=== PATIENT | male | born 1950 | race Caucasian/White ===

== ENCOUNTER 2020-07-26 17:21 | Inpatient (IN) | payer MEDICARE, OTHER ==
[~2020-07-26] VITALS: Ht 170.2 cm; Wt 70.8 kg
--- NOTE | 2020-07-26 17:21 | NUR ---
Dr Elaine at the bedside for MSE.
[2020-07-26] MEDS ORDERED: BUSP10TA3 PO (17:45)
[2020-07-26] MEDS ORDERED: SENN8.8S19 PO (17:45)
[2020-07-26] MEDS ORDERED: LORA-258 PO (17:45)
[2020-07-26] MEDS ORDERED: BISA10SU61 RC (17:45)
[2020-07-26] MEDS ORDERED: QUET100T PO (17:45)
[2020-07-26] MEDS ORDERED: MAG30ORA PO (17:45)
[2020-07-26] MEDS ORDERED: MEMA10TA PO (17:45)
[2020-07-26] MEDS ORDERED: ACET-2154 PO (17:45)
[2020-07-26] MEDS ORDERED: POLY17PO4 PO (17:45)
[2020-07-26 17:56] LABS: BASOPHILS # (AUTO) 0.1 K/uL (0.0-8.0); BASOPHILS % (AUTO) 0.6 % (0.0-2.0); EOSINOPHILS # (AUTO) 0.1 K/uL (0.0-0.7); EOSINOPHILS % (AUTO) 1.2 % (0.0-7.0); HEMATOCRIT 39.4 % (36.7-47.1); HEMOGLOBIN 13.3 g/dL (12.5-16.3); LYMPHOCYTES # (AUTO) 2.4 K/uL (20.0-40.0); LYMPHOCYTES % (AUTO) 29.9 % (20.5-51.5); MEAN CORPUSCULAR HEMOGLOBIN 30.9 uug (23.8-33.4); MEAN CORPUSCULAR HGB CONC 34 g/dL (32.5-36.3); MEAN CORPUSCULAR VOLUME 91.7 fL (73.0-96.2); MONOCYTES # (AUTO) 0.5 K/uL (2.0-10.0); MONOCYTES % (AUTO) 6.4 % (0.0-11.0); NEUTROPHILS % (AUTO) 61.9 % (38.5-71.5); PLATELET COUNT (AUTO) 259 K/uL (152-348); RED BLOOD CELL COUNT(AUTO) 4.29 MIL/uL (4.06-5.63); WHITE BLOOD COUNT (AUTO) 8.1 K/uL (3.6-10.2)
--- NOTE | 2020-07-26 18:04 | NUR ---
Pt assissted to stand up to urinate, unable to use urinal and urinated on the floor. Unable to collect urine for LAB.
[2020-07-26 18:06] LABS: ETHANOL < 3 MG/DL (0-0)
[2020-07-26 18:18] LABS: CARBON DIOXIDE 25 mmol/L (21-32); CHLORIDE 103 mmol/L (98-107); CREATININE 1.1 mg/dL (0.6-1.3); GLUCOSE 92 mg/dL (74-106); POTASSIUM 4.1 mmol/L (3.5-5.1); UREA NITROGEN, BLOOD 34 mg/dL (7-18)
--- NOTE | 2020-07-26 18:20 | NUR ---
Pt medically cleared by Dr Elaine. Called PET brandt Klein RN, ETA 1930.
[2020-07-26 18:24] LABS: ALANINE AMINOTRANSFERASE 22 U/L (16-63); ALKALINE PHOSPHATASE 125 U/L (50-136); ASPARTATE AMINOTRANSFERASE 30 U/L (15-37); BILIRUBIN,DIRECT 0.1 mg/dL (0.0-0.2); BILIRUBIN,TOTAL 0.5 mg/dL (0.2-1.0); TOTAL PROTEIN, SERUM 7.1 g/dL (6.4-8.2)
[2020-07-26 18:25] LABS: ACETAMINOPHEN < 2.0 ug/mL (10-30)
--- NOTE | 2020-07-26 18:27 | NUR ---
Pt attempts to climb out of bed and swings at staff, DR Elaine made aware. Medications ordered.
[2020-07-26] MEDS ORDERED: LORAZEPAM 2 MG/1 ML VIAL IM ONE (18:30)
[2020-07-26] MEDS ORDERED: HALOPERIDOL LACTATE 5 MG/1 ML VIAL ONE (18:30)
[2020-07-26] MEDS ORDERED: LORAZEPAM 2 MG/1 ML VIAL ONE (18:30)
[2020-07-26] MEDS ORDERED: HALOPERIDOL LACTATE 5 MG/1 ML VIAL IM ONE (18:30)
--- NOTE | 2020-07-26 20:08 | NUR ---
Crisis [employer] team member here to evaluate patient
--- NOTE | 2020-07-26 20:53 | NUR ---
Patient discharged to home in stable condition. Written and verbal after care instructions given. Patient verbalizes understanding of instructions. Stressed follow up or return to ER for worsening s/s. Belongings with patient. 5150 hold for DTS and GD placed by Valencia from Crisis Team. Stable condition. Addendum: 07/27/20 at 2312 by MUNA This note was inaccurate per Cesar Sams RN, written on incorrect patient. Please disregard
[2020-07-26] MEDS ORDERED: MAGNESIUM HYDROXIDE 30 ML LIQUID UDC PO PRN (21:15)
[2020-07-26] MEDS ORDERED: MAG HYDROX/AL HYDROX/SIMETH 30 ML LIQUID UDC PO PRN (21:15)
[2020-07-26] MEDS: LORAZEPAM 1 MG TABLET PO PRN (22:40)
--- NOTE | 2020-07-26 22:45 | NUR ---
GPS: Admitted to facility earlier a 70 yr.old male under the care and supervision of ( Dr. Menchaca-robyn) and PRESS TENDER STAR SIGNAL Emanuel who was medically cleared in the E.R. Pt.is on 72 hour hold for DTO/GD. Pt.has been aggressive ,increased agitation and increased confusion at the assisted living facility where he's from,per hold. Pt.is alert to himself only. Confused,disoriented and disorganized. Combative,resistant to nursing care,unpredictable and aggressive during care. Unable to answer questions when interviewed and unable to sign due to mental condition. Reality re-orientation provided. Personal belongings checked for any contraband. Pt.advisement/pt's rights handbook given. Unit rules explained. Fall precautions initiated. VSS. Ativan 1mg given PO for increased anxiety/agitation. Will continue to monitor. Frequent re-direction provided. Family aware of pt's admission to the unit.
--- NOTE | 2020-07-27 06:40 | NUR ---
GPS: Pt.still asleep at this time. Fall precautions observed. In no form of distress noted.
[2020-07-27 07:30] VITALS: BP 154/96
--- NOTE | 2020-07-27 09:29 | NUR ---
Firearms Report: Casing Material Weigher completed and submitted a DOJ firearms report for 5150 grave disability and danger to others certifications. A copy of report has been placed in patient chart.
--- NOTE | 2020-07-27 09:46 | NUR ---
DALJIT Family Contact: DALJIT spoke with patient's , Meet ([phone]) who is also the DPOA. DALJIT requested DPOA documents from [facility] ([phone]), spoke with Omar who will be faxing it to this auto service writer. Meet provided collateral information (see DALJIT assessment). DALJIT discussed treatment and discharge plan with Garimaigordarron.
--- NOTE | 2020-07-27 10:10 | NUR ---
DALJIT Initial Discharge Plan: Patient was recently at a assisted living facility [facility] where he was discharge home [address] [place], [place] [address] with /DPOA, Meet ([phone]) as he was unmanageable at the facility. DALJIT spoke with Meet who requested a SNF placement for the patient from the hospital once stable. DALJIT will continue to work with patient, family, and MD to ensure a safe and proper discharge plan.
[2020-07-27] MEDS: LORAZEPAM 1 MG TABLET PO PRN ×2 (12:36→23:21)
--- NOTE | 2020-07-27 13:00 | NUR ---
Gps/Slack Cooper- Patient gets fidgety, restless, given his finger foods, fluids offered and encouraged, Safety reviewed emphasized, ambulated by rx specialist w/ no walker. Confused, disoriented. Uncooperative during his care.
[2020-07-27 16:00] VITALS: BP 113/71
[2020-07-27] MEDS: QUETIAPINE FUMARATE 25 MG TABLET PO SCH (17:28)
[2020-07-27] MEDS: busPIRone 5 MG TABLET PO SCH (17:28)
--- NOTE | 2020-07-27 17:45 | NUR ---
Gps/Head Start Teacher-Toileted, no voiding noted, needed to collect urine specimen Tried to offered fluids/juices, tends to bite plastic spoon during meals when tries to feed. Confused , disoriented , kept up in his carlin-chair close to the Nurses station for safety. Not initiating to feed self during dinner , needs verbal cues, prompted to feed self., needed supervision.
[2020-07-27] MEDS: MEMANTINE HCL 5 MG TABLET PO SCH (20:23)
[2020-07-27 20:32] VITALS: BP 109/72
[2020-07-27] MEDS ORDERED: MAG HYDROX/AL HYDROX/SIMETH 30 ML LIQUID UDC PO SCH (21:15)
[2020-07-27] MEDS ORDERED: ACETAMINOPHEN 325 MG TABLET PO PRN (21:15)
[2020-07-27] MEDS ORDERED: MIRALAX 17 GM POWD.PACK PO PRN (21:15)
[2020-07-27] MEDS ORDERED: SENNOSIDES 1 TABLET PO PRN (21:15)
[2020-07-27] MEDS ORDERED: BISACODYL 10 MG SUPP.RECT RC PRN (21:15)
[2020-07-28] MEDS: QUETIAPINE FUMARATE 25 MG TABLET PO PRN (00:51)
[2020-07-28 07:30] VITALS: BP 112/73
--- NOTE | 2020-07-28 07:38 | NUR ---
patient slept for approx 4 hrs through the night. He was noted combative while ADLs. required 2 person assistance for give care. will continue to monitor.
[2020-07-28] MEDS: MEMANTINE HCL 5 MG TABLET PO SCH ×2 (08:38→20:05)
[2020-07-28] MEDS: QUETIAPINE FUMARATE 25 MG TABLET PO SCH ×3 (08:38→17:04)
[2020-07-28] MEDS: busPIRone 5 MG TABLET PO SCH ×3 (08:38→17:04)
[2020-07-28] MEDS ORDERED: BISACODYL 10 MG SUPP.RECT RC PRN (09:02)
--- NOTE | 2020-07-28 09:55 | NUR ---
DALJIT DPOA Documents: DALJIT received DPOA documents from patient's , Meet ([phone]). Addendum: 07/28/20 at 0957 by FAHEEM HERNANDEZ A copy has been placed in the patient's chart.
[2020-07-28 17:21] VITALS: BP 149/70
[2020-07-28] MEDS: LORAZEPAM 1 MG TABLET PO PRN (17:59)
[2020-07-28 20:05] VITALS: BP 108/73
--- NOTE | 2020-07-29 04:10 | NUR ---
GPS: Pt.asleep upon rounds. Bed alarm on for safety. Safety checks Q15 minutes done as scheduled. Will continue to monitor.
[2020-07-29 04:50] VITALS: BP 119/77
--- NOTE | 2020-07-29 04:50 | NUR ---
GPS: Pt. got up from his bed and started ambulating along the hallway when he suddenly lost his balance and landed on the floor hitting top of his head. Assisted to the carlin-chair. Pt.suffered skin tear on top of his head. No other injuries noted. Moves all ext's without any noted pain/discomfort. VSS. Ice packs applied . Neuro checks initiated. Pt.is confused,disoriented and unable to state reason why he got out of bed. was informed with orders,carried-out. Pt.kept near nurses station for close observation. No N/V noted. Will continue to monitor.
--- NOTE | 2020-07-29 05:22 | NUR ---
GPS: Pt.up on carlin-chair near nurses station for close observation and for safety due to recent fall. No changes in his baseline LOC noted. No n/v noted. Neuro checks continues.
--- NOTE | 2020-07-29 06:27 | NUR ---
GPS: Pt.awake alert to self. Up on carlin-chair as nathalie. near nurses station for close observation. No changes in his baseline LOC noted. Neuro checks continues and WNL. Denies headache/pain/ nor any N/V. Fall precautions observed. Reality re-orientation provided.
[2020-07-29] MEDS: busPIRone 5 MG TABLET PO SCH ×3 (08:16→17:08)
[2020-07-29] MEDS: MEMANTINE HCL 5 MG TABLET PO SCH ×2 (08:16→21:12)
[2020-07-29] MEDS: QUETIAPINE FUMARATE 25 MG TABLET PO SCH ×3 (08:16→17:08)
--- NOTE | 2020-07-29 14:00 | NUR ---
Gps/Sheetfed Press Operator-Needed assist with his meals, resisitive to care from time to time. Staff needed to use silverware sppoo when assisting his with meals, patient tends to bite plastic spoone. Continue to monitor patient closely for safety
[2020-07-29 15:25] VITALS: BP 109/70
--- NOTE | 2020-07-29 16:51 | NUR ---
Gps/Filling Room Operator- Toileted , incontinent of soft stools and urine, needed 3 staff to assist patient with his hygiene, patient was combative, resistive to his care. Diaper applied Noted small skin tear right elbow and left f/a, site cleansed with NS, pat dry, mepilex applied, secured with tegaderm to protect skin from rubbing arms on the tray
--- NOTE | 2020-07-29 17:41 | NUR ---
Gps/Coal Chute Worker- Fed self with finger food, needed close supervision , verbal cues
--- NOTE | 2020-07-29 18:32 | NUR ---
Gps/Concrete Stone Finishing Supervisor- Patient's Meaghan was called and informed patient had a fall at 0500 , per noc. shift note s pt. got OOB and started ambulating around ,and lost his balance, informed Post Partum Nurse was notified and CT head was done.
[2020-07-29 20:00] VITALS: BP 113/75
[2020-07-29] MEDS: LORAZEPAM 1 MG TABLET PO PRN (21:34)
[2020-07-29] MEDS: TEMAZEPAM 7.5 MG CAPSULE PO PRN (23:35)
--- NOTE | 2020-07-30 06:26 | NUR ---
PAtient slept 30 minutes only.Compliant with medication. Patient was placed on his bed last night.Provided a quite and calm environment .Safety measures was in place. Patient trying to get out of bed .Noted unsteady gait. Assisted patient to bathroom with 3 person assist.BM x1. Noted combative behavior while providing care.PAtient placed back on carlin -chair. Will endorse to oncoming shift.
[2020-07-30 07:30] VITALS: BP 110/65
[2020-07-30 08:00] VITALS: BP 110/65
[2020-07-30] MEDS: MEMANTINE HCL 5 MG TABLET PO SCH ×2 (08:37→20:05)
[2020-07-30] MEDS: QUETIAPINE FUMARATE 25 MG TABLET PO SCH ×3 (08:37→17:55)
[2020-07-30] MEDS: busPIRone 5 MG TABLET PO SCH ×3 (08:37→17:55)
--- NOTE | 2020-07-30 08:59 | NUR ---
Gps/Shore Working Supervisor- Patient needing assist with his meal, routine am meds. crushed , administered with apple sauce, offered finger foods. Confused, disoriented, gets combative when tried to feed this am. Monitored closely for safety. fidgety
[2020-07-30] MEDS: CLOTRIMAZOLE 1% CREAM 30 GM TUBE TOP SCH (10:53)
--- NOTE | 2020-07-30 11:50 | NUR ---
Gps/Electrical Cad Designer- Poorly goomed toenails, thick , crusty, fungal cream applied as ordered. Forearms with patches of small bruising and redness, small skin tears , unable to keep dressings, pt. kept removing . Restless and fidgety in his carlin-chair, monitored closely for his safety .
[2020-07-30 16:00] VITALS: BP 110/68
--- NOTE | 2020-07-30 16:55 | NUR ---
Gps/Pad Making Machine Operator- Restless, fidgety while sitting in his carlin-chair, noted incontinent of urine as well and soft stools, toileted, had more bm in the bathroom, when tried to assist patient in cleaning , trying to provide good hygiene, patient starting to get agitated, aggressive, trying to hit staff, kicking staff, needed 4 staff to assist patient to bed to provide good skin care, and for safety, but patient remains aggressive towards the staff, Security Guards (2) came to assist Diaper applied , good skin care rendered. When patient was cleansed, pajama bottom put on, , remains to kicked Safety continue to emphasized. staff in the face. Patient was put in his carlin-chair , tried to assist with his dinner.
--- NOTE | 2020-07-30 17:00 | NUR ---
Gps/Central Supply Tech- Also noted patient was trying to bite the Military Equipment Specialist during his care.
--- NOTE | 2020-07-30 18:01 | NUR ---
Gps/Station Repairer- Patient was fed during his dinner, adequate fluid intake , assisted by ADULT EDUCATION PROFESSIONAL. Kept up in his carlin-chair for safety ,
[2020-07-30 20:00] VITALS: BP 115/70
--- NOTE | 2020-07-31 06:36 | NUR ---
GPS: Pt.slept for 8.15 last night. Remains combative/resistant during incontinence care. Fall precautions observed. Bed alarm on for safety.
[2020-07-31 07:30] VITALS: BP 100/56
[2020-07-31 07:58] LABS: CREATININE 0.9 mg/dL (0.6-1.3)
[2020-07-31] MEDS: MEMANTINE HCL 5 MG TABLET PO SCH (08:53)
[2020-07-31] MEDS: QUETIAPINE FUMARATE 25 MG TABLET PO SCH ×3 (08:53→17:38)
[2020-07-31] MEDS: busPIRone 5 MG TABLET PO SCH ×3 (08:53→17:38)
[2020-07-31] MEDS: CLOTRIMAZOLE 1% CREAM 30 GM TUBE TOP SCH (08:54)
--- NOTE | 2020-07-31 14:22 | NUR ---
GPS: Nursing Notes: Destructive Behavior to Others: Patient is awake and responding to his name, poor insight, impaired judgment, resistant with nursing care by striking out while changing his wet diaper, loud and angry affect, poor anger management, confused, disoriented, disruptive by banging on the table with his fist, redirected and reoriented during shift, unable to formulate a viable plan for self care, continue with treatment plan.
[2020-07-31 15:11] VITALS: BP 109/66
[2020-07-31] MEDS: LORAZEPAM 1 MG TABLET PO PRN ×2 (16:03→20:21)
[2020-07-31] MEDS: ENSURE ENLIVE (VAN) 240 ML LIQUID PO SCH (17:38)
[2020-07-31] MEDS: MEMANTINE HCL 10 MG TABLET PO SCH (20:21)
[2020-07-31 20:29] VITALS: BP 106/69
[2020-07-31] MEDS: TEMAZEPAM 7.5 MG CAPSULE PO PRN (22:09)
[2020-08-01] MEDS: LORAZEPAM 1 MG TABLET PO PRN ×2 (01:12→16:29)
[2020-08-01] MEDS: QUETIAPINE FUMARATE 25 MG TABLET PO PRN ×2 (04:56→12:11)
[2020-08-01 07:30] VITALS: BP 112/62
--- NOTE | 2020-08-01 10:13 | NUR ---
DALJIT SNF Referral: Faxed patient's referral packet attention to [facility] for review and possible placement at [facility] (fax: [phone]). Addendum: 08/01/20 at 1058 by FAHEEM HERNANDEZ Patient is accepted for placement.
[2020-08-01] MEDS: QUETIAPINE FUMARATE 25 MG TABLET PO SCH ×2 (10:25→17:26)
[2020-08-01] MEDS: MEMANTINE HCL 10 MG TABLET PO SCH ×2 (10:25→20:19)
[2020-08-01] MEDS: busPIRone 5 MG TABLET PO SCH ×3 (10:25→17:26)
[2020-08-01] MEDS: ENSURE ENLIVE (VAN) 240 ML LIQUID PO SCH ×2 (10:26→17:27)
[2020-08-01] MEDS: Z GUARD REMEDY PASTE 57 GM TUBE TOP SCH ×2 (10:26→20:20)
[2020-08-01] MEDS: CLOTRIMAZOLE 1% CREAM 30 GM TUBE TOP SCH (10:26)
[2020-08-01] MEDS ORDERED: QUETIAPINE FUMARATE 25 MG TABLET PO SCH ×2 (11:00→21:00)
[2020-08-01 16:00] VITALS: BP 100/62
[2020-08-01 20:25] VITALS: BP 115/75
[2020-08-01] MEDS: TEMAZEPAM 7.5 MG CAPSULE PO PRN (22:24)
[2020-08-02] MEDS: LORAZEPAM 1 MG TABLET PO PRN ×2 (00:54→22:59)
--- NOTE | 2020-08-02 06:48 | NUR ---
PATIENT SLEPT FOR APPROX 1.30 HRS THROUGH THE NIGHT. HE IS NOW IN BED SLEEPING. WILL CONTINUE TO MONITOR,
[2020-08-02 07:30] VITALS: BP 120/74
--- NOTE | 2020-08-02 07:30 | NUR ---
Received patient in Diana chair in the hallway. Patient is is noted A/O times 1. Mood is aggitated. Vital signs are stable. Safety and fall precaution in place. will continue to monitor.
[2020-08-02] MEDS: QUETIAPINE FUMARATE 25 MG TABLET PO SCH ×3 (09:28→20:04)
[2020-08-02] MEDS: busPIRone 5 MG TABLET PO SCH ×3 (09:28→17:27)
[2020-08-02] MEDS: ENSURE ENLIVE (VAN) 240 ML LIQUID PO SCH ×2 (09:28→17:35)
[2020-08-02] MEDS: MEMANTINE HCL 10 MG TABLET PO SCH ×2 (09:28→20:04)
[2020-08-02] MEDS: CLOTRIMAZOLE 1% CREAM 30 GM TUBE TOP SCH (09:29)
[2020-08-02] MEDS: Z GUARD REMEDY PASTE 57 GM TUBE TOP SCH ×2 (09:29→21:03)
[2020-08-02] MEDS ORDERED: OLANZAPINE 10 MG VIAL IM ONE (09:45)
--- NOTE | 2020-08-02 10:00 | NUR ---
Patient tries to hit staff. witnessed behavior and placed order for Zyprexa 5 MG IM now. Will administer and continue to monitor
--- NOTE | 2020-08-02 15:35 | NUR ---
This consumer loan underwriter took over care of this patient. Received report from ALEJANDRINA Jj. All questions, comments, and concerns were addressed.
[2020-08-02 16:00] VITALS: BP 118/70
[2020-08-02] MEDS: ACETAMINOPHEN 325 MG TABLET PO PRN (20:04)
[2020-08-02 20:26] VITALS: BP_SYST 110; BP_SYST 114; BP_DIAS 67; BP_DIAS 71
[2020-08-03] MEDS: TEMAZEPAM 7.5 MG CAPSULE PO PRN (00:30)
--- NOTE | 2020-08-03 06:42 | NUR ---
PT SLEPT 3.5 H. PT IN NO ACUTE DISTRESS. PRESCRIBED MEDICATION GIVEN AND PT TOLERATED IT WELL.PT CONFUSED AND NEEDS REORIENTATION. PT VITAL SIGNS STABLE. SAFETY AND COMFORT PROVIDED. WILL ENDORSE TO INCOMING NURSE FOR CONTINUITY OF CARE.
[2020-08-03 07:30] VITALS: BP 98/63
[2020-08-03] MEDS: QUETIAPINE FUMARATE 25 MG TABLET PO SCH ×3 (08:28→21:22)
[2020-08-03] MEDS: busPIRone 5 MG TABLET PO SCH ×3 (08:29→16:07)
[2020-08-03] MEDS: CLOTRIMAZOLE 1% CREAM 30 GM TUBE TOP SCH (08:30)
[2020-08-03] MEDS: ENSURE ENLIVE (VAN) 240 ML LIQUID PO SCH ×4 (08:30→17:42)
[2020-08-03] MEDS: MEMANTINE HCL 10 MG TABLET PO SCH ×2 (08:30→21:22)
[2020-08-03] MEDS: Z GUARD REMEDY PASTE 57 GM TUBE TOP SCH ×2 (08:31→21:23)
[2020-08-03] MEDS: LORAZEPAM 1 MG TABLET PO PRN (09:58)
--- NOTE | 2020-08-03 10:19 | NUR ---
Court Hearing: Patient's court hearing was today and it was upheld for GD.
[2020-08-03 16:36] VITALS: BP 117/64
--- NOTE | 2020-08-03 19:45 | NUR ---
Patient complaint with medications. Safety and comfort measures observed. vital signs stable. needs redirection at times. Cooperative with care. will endorse to incoming shift.
[2020-08-03 20:27] VITALS: BP 113/69
--- NOTE | 2020-08-04 04:44 | NUR ---
RECEIVED PATIENT IN THE RECLINING CHAIR, COOPERATIVE WITH CARE AND MEDICATION, CALM. PATIENT SLEPT MOST OF THE NIGHT, KEPT COMFORTABLE.
[2020-08-04 07:30] VITALS: BP 110/71
--- NOTE | 2020-08-04 08:00 | NUR ---
Confused. Assisted to the bathroom then to gerichair. Participated with PT. Ambulated in the hallway. Compliant with taking crushed medication
[2020-08-04] MEDS: busPIRone 5 MG TABLET PO SCH ×3 (09:02→16:28)
[2020-08-04] MEDS: MEMANTINE HCL 10 MG TABLET PO SCH ×2 (09:03→20:55)
[2020-08-04] MEDS: Z GUARD REMEDY PASTE 57 GM TUBE TOP SCH ×2 (09:03→21:49)
[2020-08-04] MEDS: CLOTRIMAZOLE 1% CREAM 30 GM TUBE TOP SCH (09:03)
[2020-08-04] MEDS: QUETIAPINE FUMARATE 25 MG TABLET PO SCH ×3 (09:03→20:56)
[2020-08-04] MEDS: ENSURE ENLIVE (VAN) 240 ML LIQUID PO SCH ×3 (09:04→16:28)
--- NOTE | 2020-08-04 13:00 | NUR ---
Calm on the gerichair. Assisted with meals.
[2020-08-04 16:00] VITALS: BP 103/63
[2020-08-04 20:38] VITALS: BP 111/74
[2020-08-04] MEDS: diphenhydrAMINE 50 MG CAPSULE PO PRN (20:56)
--- NOTE | 2020-08-05 06:37 | NUR ---
Patient was calm at the beginning of the shift. Still confused and disoriented. Unable to speak clearly. This comic writer encouraged oral fluids and patient was able to take medications with no difficulty. Patient put in bed and slept for 8.15 hours. Up this am d/t incontinence of urine. Patient was combative this am when staff was providing gracie care and a changing his cloths. Continuing to assist patient when ambulating and monitoring for safety.
[2020-08-05 07:30] VITALS: BP 112/73
[2020-08-05] MEDS: busPIRone 5 MG TABLET PO SCH ×3 (08:51→16:24)
[2020-08-05] MEDS: QUETIAPINE FUMARATE 25 MG TABLET PO SCH ×3 (08:51→19:47)
[2020-08-05] MEDS: MEMANTINE HCL 10 MG TABLET PO SCH ×2 (08:51→19:47)
[2020-08-05] MEDS: ENSURE ENLIVE (VAN) 240 ML LIQUID PO SCH ×3 (08:52→17:00)
[2020-08-05] MEDS: Z GUARD REMEDY PASTE 57 GM TUBE TOP SCH ×2 (08:53→19:48)
[2020-08-05] MEDS: CLOTRIMAZOLE 1% CREAM 30 GM TUBE TOP SCH (08:53)
[2020-08-05 16:00] VITALS: BP 106/68
--- NOTE | 2020-08-05 18:09 | NUR ---
Patient in [facility] , assisted him during feeding, all due meds given per MD order. Assisted him to the restroom . Patient has no s/sx of distress. All needs met in a timely manner. Assisted patient to walk in the hallway and assisted back to [facility].
[2020-08-05 19:51] VITALS: BP 126/71
--- NOTE | 2020-08-05 19:57 | NUR ---
Report called to Jennifer on the 3rd floor. Patient is being transferred as a MHU overflow patient with a sitter. Patient is awake but confused, belongings sent with patient. VS are stable at the time of transfer. Will contact family if indicated. No combativeness noted at this time.
--- NOTE | 2020-08-05 20:36 | NUR ---
Patients was notified of the transfer by the charge nurse.
[2020-08-05] MEDS: diphenhydrAMINE 50 MG CAPSULE PO PRN (23:03)
--- NOTE | 2020-08-05 23:15 | NUR ---
Patient in Diana chair awake and Confused.Re orientation rendered.Patient easily gets agitated.Assisted patient in bed with 4 persons assist.Patient gets combative ,unable to re direct. Pulled out medication and was drop on the floor ,wasted medication in the pyxis.Pulled out another one to administer. Sitter at bedside.
--- NOTE | 2020-08-06 06:40 | NUR ---
Patient slept 6 hours.Calm and cooperative this morning. No acute distress noted.1:1 sitter remain at bedside.
--- NOTE | 2020-08-06 07:30 | NUR ---
pt received in bed sleeping sitter at bed side
[2020-08-06] MEDS: MEMANTINE HCL 10 MG TABLET PO SCH ×2 (08:02→20:31)
[2020-08-06] MEDS: QUETIAPINE FUMARATE 25 MG TABLET PO SCH ×3 (08:02→20:31)
[2020-08-06] MEDS: Z GUARD REMEDY PASTE 57 GM TUBE TOP SCH ×2 (08:02→20:36)
[2020-08-06] MEDS: busPIRone 5 MG TABLET PO SCH ×3 (08:02→16:36)
[2020-08-06] MEDS: CLOTRIMAZOLE 1% CREAM 30 GM TUBE TOP SCH (08:03)
[2020-08-06 08:08] VITALS: BP 100/50
[2020-08-06] MEDS: ENSURE ENLIVE (VAN) 240 ML LIQUID PO SCH ×3 (09:00→16:37)
--- NOTE | 2020-08-06 09:00 | NUR ---
pt refused to eat the breakfast and getting upset trying to hit the sitter and the nurse charge nurse made aware
--- NOTE | 2020-08-06 10:29 | NUR ---
transfer the pt to u via adam chair in stable condition
--- NOTE | 2020-08-06 10:30 | NUR ---
Received pt from medical surgical floor. Patient is in carlin chair. No sign of distress noted. Patient is alert and oriented to self. safety measures implemented. Will continue to monitor.
[2020-08-06 15:37] VITALS: BP 111/75
--- NOTE | 2020-08-06 18:20 | NUR ---
ALl medications administered as prescribed. Patient is left relaxing in the carlin chair. Patient has been calm since his arrival back on the unit. Safety precautions implemented. Will endorse to the oncoming nurse.
[2020-08-06 20:01] VITALS: BP 105/72
[2020-08-06] MEDS: diphenhydrAMINE 50 MG CAPSULE PO PRN (20:31)
--- NOTE | 2020-08-07 04:19 | NUR ---
Received patient in the carlin chair, by the nurses station. Calm but confused with garbled , nonsensical speech. Ug Designer was able to get patient to drink some fluids and eat a snack with minimal assistance. This is a encouraging sign d/t the fact earlier in this admission, the patient needed total assistance with meals. Ug Designer ambulated patent in the oliveira and to the bathroom. Minimal push back or combativeness when providing help. Patient watched TV for a while and took his medications without any problem . Patient was put in his bad after that and has been asleep for the majority of the night. A great improvement for this patient. Continuing to monitor for safety and any potential behavior escalation. None noted so far.
[2020-08-07 07:30] VITALS: BP 93/55
[2020-08-07] MEDS: ENSURE ENLIVE (VAN) 240 ML LIQUID PO SCH ×3 (09:16→17:20)
[2020-08-07] MEDS: QUETIAPINE FUMARATE 25 MG TABLET PO SCH ×3 (09:16→20:53)
[2020-08-07] MEDS: busPIRone 5 MG TABLET PO SCH ×3 (09:16→17:20)
[2020-08-07] MEDS: MEMANTINE HCL 10 MG TABLET PO SCH ×2 (09:16→20:53)
[2020-08-07] MEDS: CLOTRIMAZOLE 1% CREAM 30 GM TUBE TOP SCH (09:17)
[2020-08-07] MEDS: Z GUARD REMEDY PASTE 57 GM TUBE TOP SCH ×2 (09:17→21:10)
[2020-08-07 15:00] VITALS: BP 131/67
--- NOTE | 2020-08-07 19:01 | NUR ---
Patient calm but confused. No signs of acute distress. Able to have meals with minimal assistance. Compliant with medication and care. Able to ambulate with assistance. film writer assisted patient to bathroom and patient got slightly combative with staff. Monitored for safety. Will endorse to incoming shift.
[2020-08-07 20:11] VITALS: BP 110/60
[2020-08-07] MEDS: LORAZEPAM 1 MG TABLET PO PRN (23:30)
[2020-08-07] MEDS: diphenhydrAMINE 50 MG CAPSULE PO PRN (23:30)
[2020-08-07] MEDS: ACETAMINOPHEN 325 MG TABLET PO PRN (23:40)
--- NOTE | 2020-08-08 06:16 | NUR ---
Received Pt in the hallway sitting in a carlin chair. A+O x1 to his name only, presents with altered thought process. Pt is disorganized, disoriented, and confused. Pt is uncooperative, aggressive, combative, and resistant to care. Compliant with crushed meds with prompting. Redness noted to groin, Z guard applied to area, Pt refused photo. VS stable, Tylenol 650mg administered for back pain with good effect. Ativan 1mg and Benadryl 50mg for insomnia and anxiety.
[2020-08-08] MEDS: QUETIAPINE FUMARATE 25 MG TABLET PO SCH ×4 (08:27→20:31)
[2020-08-08] MEDS: busPIRone 5 MG TABLET PO SCH ×3 (08:28→17:27)
[2020-08-08] MEDS: MEMANTINE HCL 10 MG TABLET PO SCH ×2 (08:28→20:31)
[2020-08-08] MEDS: ENSURE ENLIVE (VAN) 240 ML LIQUID PO SCH ×3 (08:28→17:37)
[2020-08-08] MEDS: CLOTRIMAZOLE 1% CREAM 30 GM TUBE TOP SCH (08:29)
[2020-08-08] MEDS: Z GUARD REMEDY PASTE 57 GM TUBE TOP SCH ×2 (08:29→20:31)
--- NOTE | 2020-08-08 09:07 | NUR ---
SW Individual Counseling: SW met with patient today to provide brief individual counseling and address patient's presenting problem of disorganized thought process. Patient continues to present with disorganized and disoriented thought process. SW attempted to reorient patient to reality however patient is not cooperative. Patient is unable to engage in a meaningful conversation due to his dementia. Patient continues to demonstrate resistance with care however appears less aggressive at times. SW will continue to remain available for patient for ongoing support.
--- NOTE | 2020-08-08 09:16 | NUR ---
DR HERNANDEZ HERE AND SEEN PATIENT WITH NO NEW ORDERS AT THIS TIME
--- NOTE | 2020-08-08 14:05 | NUR ---
PATIENT SEEN AND EXAMINED BY THE [facility] PROVIDER MARCUS DICKSON WITH NEW ORDERS AND NOTED
[2020-08-08 14:49] LABS: BASOPHILS % (AUTO) 0.5 % (0.0-2.0); EOSINOPHILS # (AUTO) 0.1 K/uL (0.0-0.7); EOSINOPHILS % (AUTO) 1.5 % (0.0-7.0); HEMATOCRIT 38.7 % (36.7-47.1); HEMOGLOBIN 13.2 g/dL (12.5-16.3); LYMPHOCYTES % (AUTO) 22.1 % (20.5-51.5); MEAN CORPUSCULAR HEMOGLOBIN 31.4 uug (23.8-33.4); MEAN CORPUSCULAR HGB CONC 34 g/dL (32.5-36.3); MEAN CORPUSCULAR VOLUME 91.7 fL (73.0-96.2); MONOCYTES # (AUTO) 0.8 K/uL (2.0-10.0); MONOCYTES % (AUTO) 9.3 % (0.0-11.0); NEUTROPHILS # (AUTO) 6.1 K/uL (1.8-8.9); NEUTROPHILS % (AUTO) 66.6 % (38.5-71.5); PLATELET COUNT (AUTO) 259 K/uL (152-348); RED BLOOD CELL COUNT(AUTO) 4.22 MIL/uL (4.06-5.63); WHITE BLOOD COUNT (AUTO) 9.2 K/uL (3.6-10.2)
[2020-08-08 15:01] LABS: BILIRUBIN,TOTAL 0.7 mg/dL (0.2-1.0); MAGNESIUM 2.3 mg/dL (1.8-2.4); POTASSIUM 4.3 mmol/L (3.5-5.1); TOTAL PROTEIN, SERUM 7.4 g/dL (6.4-8.2)
[2020-08-08 15:33] VITALS: BP 106/67
[2020-08-08 20:00] VITALS: BP 117/60
--- NOTE | 2020-08-08 21:56 | NUR ---
Received patient in the hallway sitting in the carlin chair. Patient is confused and oriented only to self. Compliant with crushed medications and prompting. Patient unable to engage in meaningful conversation. Q15 min safety checks in place and will continue to monitor for safety.
[2020-08-08] MEDS: diphenhydrAMINE 50 MG CAPSULE PO PRN (23:01)
[2020-08-08] MEDS: ACETAMINOPHEN 325 MG TABLET PO PRN (23:53)
[2020-08-08] MEDS: LORAZEPAM 1 MG TABLET PO PRN (23:53)
--- NOTE | 2020-08-09 06:37 | NUR ---
Patient falling asleep in carlin chair last night. Assisted the patient back into bed, became aggressive, and combative attempting to hit and kick the staff, yelling and screaming . Bed alarm on and in lowest position. Patient repeatedly in and out of bed. Multiple attempt provided for redirection and reorientation. Patient remains confused. PRN medications provided. Patient slept 2.30 hours. Q15 min checks remained intact, safety measures in place.
[2020-08-09 07:22] LABS: BASOPHILS # (AUTO) 0.1 K/uL (0.0-8.0); BASOPHILS % (AUTO) 0.6 % (0.0-2.0); EOSINOPHILS # (AUTO) 0.2 K/uL (0.0-0.7); EOSINOPHILS % (AUTO) 1.5 % (0.0-7.0); HEMATOCRIT 39.4 % (36.7-47.1); HEMOGLOBIN 13.1 g/dL (12.5-16.3); LYMPHOCYTES # (AUTO) 4.4 K/uL (20.0-40.0); LYMPHOCYTES % (AUTO) 32.9 % (20.5-51.5); MEAN CORPUSCULAR HEMOGLOBIN 30.8 uug (23.8-33.4); MEAN CORPUSCULAR HGB CONC 33 g/dL (32.5-36.3); MEAN CORPUSCULAR VOLUME 92.8 fL (73.0-96.2); MONOCYTES # (AUTO) 1.2 K/uL (2.0-10.0); NEUTROPHILS # (AUTO) 7.5 K/uL (1.8-8.9); PLATELET COUNT (AUTO) 258 K/uL (152-348); RED BLOOD CELL COUNT(AUTO) 4.25 MIL/uL (4.06-5.63); WHITE BLOOD COUNT (AUTO) 13.5 K/uL (3.6-10.2)
[2020-08-09 07:30] VITALS: BP 141/86
[2020-08-09 08:08] LABS: CREATININE 1.1 mg/dL (0.6-1.3); POTASSIUM 4.6 mmol/L (3.5-5.1)
[2020-08-09] MEDS: ENSURE ENLIVE (VAN) 240 ML LIQUID PO SCH ×3 (08:29→16:04)
[2020-08-09] MEDS: busPIRone 5 MG TABLET PO SCH ×3 (08:29→16:03)
[2020-08-09] MEDS: QUETIAPINE FUMARATE 25 MG TABLET PO SCH ×4 (08:30→20:44)
[2020-08-09] MEDS: MEMANTINE HCL 10 MG TABLET PO SCH ×2 (08:30→20:43)
[2020-08-09] MEDS: Z GUARD REMEDY PASTE 57 GM TUBE TOP SCH ×2 (08:31→20:43)
[2020-08-09] MEDS: CLOTRIMAZOLE 1% CREAM 30 GM TUBE TOP SCH (08:31)
--- NOTE | 2020-08-09 15:49 | NUR ---
patient is noncompliant with collecting urine sample. unable to collect, will try again
[2020-08-09 16:39] VITALS: BP 120/66
[2020-08-09] MEDS: QUETIAPINE FUMARATE 25 MG TABLET PO PRN (17:35)
--- NOTE | 2020-08-09 17:52 | NUR ---
patient is noncompliant at times, however no acute distress noted, meds administered as ordered, denied suicidal thoughts or ideations
--- NOTE | 2020-08-09 19:00 | NUR ---
tried to collect urine again, patient got very agitated and started swinging his arms to the staff, unable to collect Addendum: 08/09/20 at 1902 by KASIA MATHEW RN, RN brought to the bathroom to collect the urine sample, however got combative, unable to collect it
[2020-08-09 20:36] VITALS: BP 114/67
[2020-08-09 21:53] LABS: *BILIRUBIN,URIN NEGATIVE (NEGATIVE); *BLOOD, URINE TRACE LYSED (NEGATIVE); *CLARITY,URINE CLOUDY (CLEAR); *COLOR,URINE YELLOW (YELLOW); *KETONES,URINE NEGATIVE (NEGATIVE); LEUKOCYTE ESTERASE ,URINE 2+ (NEGATIVE); NITRITE, URINE NEGATIVE (NEGATIVE); UGLUCOSE NEGATIVE (NEGATIVE)
--- NOTE | 2020-08-09 22:13 | NUR ---
Received patient in the hallway, able to get urine sample from patient, med compliant, cooperative with care, has poor insight and poor judgement. Will remain in a psych facility for further evaluation and treatment.
[2020-08-09 22:31] LABS: BACTERIA,URINE MODERATE /HPF (NONE SEEN); SQUAMOUS EPITHELIAL CELL,UR FEW /HPF (NONE SEEN); WBC,URINE TNTC /HPF (0-3)
[2020-08-10 06:58] LABS: BASOPHILS # (AUTO) 0.1 K/uL (0.0-8.0); BASOPHILS % (AUTO) 0.5 % (0.0-2.0); EOSINOPHILS # (AUTO) 0.1 K/uL (0.0-0.7); EOSINOPHILS % (AUTO) 1.1 % (0.0-7.0); HEMATOCRIT 39.2 % (36.7-47.1); HEMOGLOBIN 13.3 g/dL (12.5-16.3); LYMPHOCYTES # (AUTO) 2.7 K/uL (20.0-40.0); LYMPHOCYTES % (AUTO) 23.4 % (20.5-51.5); MEAN CORPUSCULAR HGB CONC 34 g/dL (32.5-36.3); MEAN CORPUSCULAR VOLUME 91.6 fL (73.0-96.2); MONOCYTES # (AUTO) 0.8 K/uL (2.0-10.0); MONOCYTES % (AUTO) 7.1 % (0.0-11.0); NEUTROPHILS # (AUTO) 7.9 K/uL (1.8-8.9); NEUTROPHILS % (AUTO) 67.9 % (38.5-71.5); PLATELET COUNT (AUTO) 269 K/uL (152-348); RED BLOOD CELL COUNT(AUTO) 4.28 MIL/uL (4.06-5.63); WHITE BLOOD COUNT (AUTO) 11.6 K/uL (3.6-10.2)
[2020-08-10 07:15] LABS: BILIRUBIN,TOTAL 0.6 mg/dL (0.2-1.0); CREATININE 1.1 mg/dL (0.6-1.3); POTASSIUM 4.4 mmol/L (3.5-5.1); TOTAL PROTEIN, SERUM 7.4 g/dL (6.4-8.2)
[2020-08-10 07:30] VITALS: BP 121/56
[2020-08-10] MEDS: QUETIAPINE FUMARATE 25 MG TABLET PO SCH ×3 (09:00→17:30)
[2020-08-10] MEDS: ENSURE ENLIVE (VAN) 240 ML LIQUID PO SCH ×3 (09:00→17:00)
[2020-08-10] MEDS: busPIRone 5 MG TABLET PO SCH ×3 (09:00→17:30)
[2020-08-10] MEDS: CLOTRIMAZOLE 1% CREAM 30 GM TUBE TOP SCH (09:00)
[2020-08-10] MEDS ORDERED: CEphaleXIN 500 MG CAPSULE PO SCH (09:00)
[2020-08-10] MEDS: MEMANTINE HCL 10 MG TABLET PO SCH ×2 (09:00→21:01)
[2020-08-10] MEDS: Z GUARD REMEDY PASTE 57 GM TUBE TOP SCH ×2 (11:02→21:03)
[2020-08-10] MEDS ORDERED: CEFTRIAXONE 1 G VIAL IM ONE (13:00)
[2020-08-10 16:00] VITALS: BP 107/62
[2020-08-10 20:38] VITALS: BP 123/64
[2020-08-10] MEDS ORDERED: QUETIAPINE FUMARATE 25 MG TABLET PO SCH (21:00)
--- NOTE | 2020-08-10 22:33 | NUR ---
RECEIVED PATIENT IN A KATHY CHAIR IN THE HALLWAY.APPEARS CONFUSED, DISORIENTED WITH POOR INSIGHT. EXPERIENCING VISUAL HALLUCINATION HE KEEPS SAYING 'LOOK AT THE CHILDREN STANDING THERE. BRING THEM HERE AND POINTING IN A DIRECTION.HE WAS UNCOOPERATIVE AND RESISTANT TO CARE. HE IS HOWEVER COMPLIANT WITH CRUSHED MEDICATIONS. VISUAL CHECKS MADE ON HIM FOR SAFETY. WILL CONTINUE TO MONITOR.
[2020-08-10] MEDS: diphenhydrAMINE 50 MG CAPSULE PO PRN (22:40)
--- NOTE | 2020-08-11 06:58 | NUR ---
SLEPT FOR 5HOURS. [id number] AND RESISTANT TO CARE THIS MORNING. HITTING AND KICKING STAFF IN THE PROCESS.
[2020-08-11 07:30] VITALS: BP 119/69
[2020-08-11] MEDS: busPIRone 5 MG TABLET PO SCH (08:43)
[2020-08-11] MEDS: MEMANTINE HCL 10 MG TABLET PO SCH ×2 (08:43→20:05)
[2020-08-11] MEDS: QUETIAPINE FUMARATE 25 MG TABLET PO SCH (08:43)
[2020-08-11] MEDS: ENSURE ENLIVE (VAN) 240 ML LIQUID PO SCH ×3 (08:43→16:46)
[2020-08-11] MEDS: Z GUARD REMEDY PASTE 57 GM TUBE TOP SCH ×2 (08:45→20:06)
[2020-08-11] MEDS: CLOTRIMAZOLE 1% CREAM 30 GM TUBE TOP SCH (08:45)
--- NOTE | 2020-08-11 10:52 | NUR ---
SW Individual Counseling: SW met with patient today to provide brief individual counseling and address patient's presenting problem of disorganized thought process. Patient continues to present with disorganized and disoriented thought process. SW attempted to reorient patient to reality however patient is not cooperative. Patient is unable to engage in a meaningful conversation due to his dementia. Patient continues to demonstrate resistance with care however appears to have aggressive behaviors. SW will continue to remain available for patient for ongoing support.
[2020-08-11] MEDS: risperiDONE-M 0.5 MG TAB.RAPDIS PO SCH ×2 (13:06→16:45)
[2020-08-11] MEDS: DIVALPROEX SPRINKLE 125 MG CAP.SPRINK PO SCH ×2 (13:06→16:45)
[2020-08-11 16:47] VITALS: BP 108/60
[2020-08-11 20:29] VITALS: BP 116/66
[2020-08-11] MEDS: diphenhydrAMINE 50 MG CAPSULE PO PRN (23:06)
--- NOTE | 2020-08-12 05:12 | NUR ---
Pt asleep at this time, no s/sx of distress. No c/o pain. Safety precautions in place. Frequent rounds done to ensure safety.
[2020-08-12 07:30] VITALS: BP 106/74
[2020-08-12] MEDS: MEMANTINE HCL 10 MG TABLET PO SCH ×2 (08:31→20:40)
[2020-08-12] MEDS: CEphaleXIN 500 MG CAPSULE PO SCH ×3 (08:31→13:00)
[2020-08-12] MEDS: DIVALPROEX SPRINKLE 125 MG CAP.SPRINK PO SCH ×4 (08:31→17:00)
[2020-08-12] MEDS: Z GUARD REMEDY PASTE 57 GM TUBE TOP SCH ×2 (08:32→20:40)
[2020-08-12] MEDS: CLOTRIMAZOLE 1% CREAM 30 GM TUBE TOP SCH (08:32)
[2020-08-12] MEDS: risperiDONE-M 0.5 MG TAB.RAPDIS PO SCH ×4 (08:32→17:00)
[2020-08-12] MEDS: ENSURE ENLIVE (VAN) 240 ML LIQUID PO SCH ×3 (08:32→17:00)
--- NOTE | 2020-08-12 14:30 | NUR ---
patient was being combative, resistive with care, patient has poor insight , refusing to eat , patient refused all his medication , even after educating about the benefits of his medication, called and spoke with Dr. funk , with orders made and carried out, patient tolerated the medication
--- NOTE | 2020-08-12 15:04 | NUR ---
Patient refusing medication despite of encouragement and education.
[2020-08-12 16:00] VITALS: BP 114/68
[2020-08-12] MEDS ORDERED: OLANZAPINE 10 MG VIAL IM ONE (17:00)
[2020-08-12] MEDS: CEFTRIAXONE 1 G VIAL IM SCH (17:18)
[2020-08-12] MEDS: diphenhydrAMINE 50 MG CAPSULE PO PRN (20:40)
[2020-08-12] MEDS: LORAZEPAM 1 MG TABLET PO PRN (22:17)
--- NOTE | 2020-08-13 06:38 | NUR ---
Received patient up in the Diana chair last night. Confused and irritable. Staff took patient to the bathroom and patient became combative and hostile, trying to hit the nurses. After that, and seeing that the patient had not eaten the whole day, a sandwich was provided and patient was able to feed self. This marketing writer was able to give medications and fluids with minimal difficulty. Patient was put to bed and again became aggressive with staff and had to be put in the chair for safety. A few hours later, marketing writer assisted patient to bed and patient went to sleep without incidence. Total hours of sleep 4.15 so far. Continuing to monitor for safety and behavior escalation.
[2020-08-13] MEDS: LORAZEPAM 1 MG TABLET PO PRN (08:17)
[2020-08-13] MEDS: DIVALPROEX SPRINKLE 125 MG CAP.SPRINK PO SCH ×3 (10:08→16:29)
[2020-08-13] MEDS: risperiDONE-M 0.5 MG TAB.RAPDIS PO SCH ×3 (10:08→16:28)
[2020-08-13] MEDS: ENSURE ENLIVE (VAN) 240 ML LIQUID PO SCH ×3 (10:08→16:29)
[2020-08-13] MEDS: MEMANTINE HCL 10 MG TABLET PO SCH ×2 (10:08→20:09)
[2020-08-13] MEDS: Z GUARD REMEDY PASTE 57 GM TUBE TOP SCH ×2 (10:09→20:09)
[2020-08-13] MEDS: CLOTRIMAZOLE 1% CREAM 30 GM TUBE TOP SCH (10:09)
--- NOTE | 2020-08-13 14:25 | NUR ---
GPS: Nursing Notes: Destructive Behavior to Others: Patient is awake and responding to his name, impaired judgment, resistant with nursing care, confused, disoriented, poor insight, violent outburst with assisting him ADL's, trying to strike out to staff, kicking to staff when assisting him to change his wet pants, paranoid behavior, believes that someone is trying to hurt him, fearful, redirected and reoriented to reality during shift, needs a lot of prompting to be compliant with his medications, unable to formulate a viable plan for self care, disorganized, continue with treatment plan.
[2020-08-13 16:00] VITALS: BP 96/55
[2020-08-13] MEDS: ACETAMINOPHEN 325 MG TABLET PO PRN (16:28)
[2020-08-13] MEDS: CEFTRIAXONE 1 G VIAL IM SCH (17:31)
[2020-08-13 20:18] VITALS: BP 111/67
--- NOTE | 2020-08-14 06:37 | NUR ---
GPS: patient Remain in carlin chair most of the night. assisted in bed twice but patient get out of bed and start walking with unsteady gait. then assisted in carlin chair for safety. slept 4 hrs through the night. cooperative with care, has poor insight and poor judgement. continue plan of care.
[2020-08-14 07:30] VITALS: BP 113/68
[2020-08-14 07:33] LABS: BASOPHILS % (AUTO) 0.4 % (0.0-2.0); EOSINOPHILS # (AUTO) 0.1 K/uL (0.0-0.7); EOSINOPHILS % (AUTO) 0.7 % (0.0-7.0); HEMATOCRIT 38.1 % (36.7-47.1); HEMOGLOBIN 13.3 g/dL (12.5-16.3); LYMPHOCYTES # (AUTO) 2.9 K/uL (20.0-40.0); LYMPHOCYTES % (AUTO) 26.6 % (20.5-51.5); MEAN CORPUSCULAR HEMOGLOBIN 31.7 uug (23.8-33.4); MEAN CORPUSCULAR HGB CONC 35 g/dL (32.5-36.3); MEAN CORPUSCULAR VOLUME 90.8 fL (73.0-96.2); MONOCYTES # (AUTO) 0.8 K/uL (2.0-10.0); MONOCYTES % (AUTO) 7.8 % (0.0-11.0); NEUTROPHILS % (AUTO) 64.5 % (38.5-71.5); PLATELET COUNT (AUTO) 295 K/uL (152-348); WHITE BLOOD COUNT (AUTO) 10.9 K/uL (3.6-10.2)
[2020-08-14] MEDS: LORAZEPAM 1 MG TABLET PO PRN ×2 (07:46→12:47)
[2020-08-14 07:47] LABS: BILIRUBIN,TOTAL 0.6 mg/dL (0.2-1.0); MAGNESIUM 2.3 mg/dL (1.8-2.4); POTASSIUM 3.8 mmol/L (3.5-5.1); TOTAL PROTEIN, SERUM 7.4 g/dL (6.4-8.2)
[2020-08-14] MEDS: risperiDONE-M 0.5 MG TAB.RAPDIS PO SCH ×3 (08:17→21:15)
[2020-08-14] MEDS: DIVALPROEX SPRINKLE 125 MG CAP.SPRINK PO SCH ×4 (08:17→21:15)
[2020-08-14] MEDS: MEMANTINE HCL 10 MG TABLET PO SCH ×2 (08:17→21:15)
[2020-08-14] MEDS: Z GUARD REMEDY PASTE 57 GM TUBE TOP SCH ×2 (08:18→21:12)
[2020-08-14] MEDS: CLOTRIMAZOLE 1% CREAM 30 GM TUBE TOP SCH (08:18)
[2020-08-14] MEDS: ENSURE ENLIVE (VAN) 240 ML LIQUID PO SCH ×3 (08:19→16:14)
[2020-08-14] MEDS: NITROFURANTOIN/NITROFURAN MAC 100 MG CAPSULE PO SCH ×2 (13:49→21:14)
[2020-08-14 16:04] VITALS: BP 100/62
[2020-08-14] MEDS: ACETAMINOPHEN 325 MG TABLET PO PRN (16:13)
[2020-08-14] MEDS: Z GUARD REMEDY PASTE 57 GM TUBE TOP PRN (16:15)
[2020-08-14 20:00] VITALS: BP 112/69
[2020-08-14] MEDS: diphenhydrAMINE 50 MG CAPSULE PO PRN (22:34)
[2020-08-15] MEDS: LORAZEPAM 1 MG TABLET PO PRN (05:15)
[2020-08-15] MEDS: Z GUARD REMEDY PASTE 57 GM TUBE TOP PRN ×2 (05:42→16:31)
--- NOTE | 2020-08-15 05:50 | NUR ---
GPS: Up on carlin-chair at this time near nurses station for safety. Slept 7.30 last night. Remains confused,disoriented and uncooperative/resitant to nursing care but without striking out episode noted. Fluids encouraged and nathalie.well Ativan 1mg given PO earlier for anxiety. Needs anticipated. Reality re-orientation provided.
[2020-08-15 07:30] VITALS: BP 100/65
[2020-08-15] MEDS: MEMANTINE HCL 10 MG TABLET PO SCH ×2 (08:06→20:10)
[2020-08-15] MEDS: risperiDONE-M 0.5 MG TAB.RAPDIS PO SCH ×3 (08:06→20:11)
[2020-08-15] MEDS: NITROFURANTOIN/NITROFURAN MAC 100 MG CAPSULE PO SCH ×2 (08:06→20:10)
[2020-08-15] MEDS: CLOTRIMAZOLE 1% CREAM 30 GM TUBE TOP SCH (08:07)
[2020-08-15] MEDS: DIVALPROEX SPRINKLE 125 MG CAP.SPRINK PO SCH ×4 (08:07→20:10)
[2020-08-15] MEDS: ENSURE ENLIVE (VAN) 240 ML LIQUID PO SCH ×3 (08:07→16:12)
[2020-08-15] MEDS: Z GUARD REMEDY PASTE 57 GM TUBE TOP SCH ×2 (08:08→20:11)
--- NOTE | 2020-08-15 11:51 | NUR ---
DALJIT Family Contact: DALJIT left a voicemail for patients , Meet/СВЕТЛАНА ([phone]) informing of discharge plan tomorrow to [facility]. Addendum: 08/16/20 at 1300 by FAHEEM HERNANDEZ DALJIT spoke with Meet and confirmed patient's discharge plan.
[2020-08-15] MEDS: ACETAMINOPHEN 325 MG TABLET PO PRN (15:57)
[2020-08-15 20:16] VITALS: BP 111/70
--- NOTE | 2020-08-16 05:43 | NUR ---
GPS: Pt. now awake and sitting on a gerichair near nurses station for safety. Remains confused,disoriented. Incontinence care done without any combative behavior noted. Fall precautions observed. Slept 8.15 last night. No adverse reactions noted from atb.therapy. Fluids encouraged and nathalie.well.
[2020-08-16 07:30] VITALS: BP 111/67
[2020-08-16 07:58] LABS: BASOPHILS # (AUTO) 0.1 K/uL (0.0-8.0); BASOPHILS % (AUTO) 0.6 % (0.0-2.0); EOSINOPHILS # (AUTO) 0.1 K/uL (0.0-0.7); EOSINOPHILS % (AUTO) 1.3 % (0.0-7.0); HEMATOCRIT 36.8 % (36.7-47.1); LYMPHOCYTES # (AUTO) 2.4 K/uL (20.0-40.0); LYMPHOCYTES % (AUTO) 22.2 % (20.5-51.5); MEAN CORPUSCULAR HEMOGLOBIN 32.2 uug (23.8-33.4); MEAN CORPUSCULAR HGB CONC 35 g/dL (32.5-36.3); MEAN CORPUSCULAR VOLUME 91.1 fL (73.0-96.2); MONOCYTES # (AUTO) 0.8 K/uL (2.0-10.0); MONOCYTES % (AUTO) 7.2 % (0.0-11.0); NEUTROPHILS # (AUTO) 7.4 K/uL (1.8-8.9); NEUTROPHILS % (AUTO) 68.7 % (38.5-71.5); PLATELET COUNT (AUTO) 281 K/uL (152-348); RED BLOOD CELL COUNT(AUTO) 4.04 MIL/uL (4.06-5.63); WHITE BLOOD COUNT (AUTO) 10.8 K/uL (3.6-10.2)
--- NOTE | 2020-08-16 08:04 | NUR ---
SW Discharge Note: Patient will be discharged to [facility] [id number] [place] [address] ([phone]). Patient will be provided Ambulance transportation at 1PM. Spoke with Georgina, Admin Coordinator at the facility who states they are ready to accept the patient today. Patient is aware and agreeable with discharge plans. Patient is alert and oriented x2, is unable to plan for self-care, however, is willing to accept care at [facility]. Patient denies any suicidal or homicidal ideation. Patient will follow-up at the facility with Dr. Ramirez Psychiatrist and Dr. Burger Blower And Compressor Assembler. Patient presents with calm mood and congruent affect. Patients , Meet/DPOA ([phone]) is aware and agreeable with discharge plans.
[2020-08-16 08:17] LABS: BILIRUBIN,TOTAL 0.5 mg/dL (0.2-1.0); CREATININE 0.9 mg/dL (0.6-1.3); POTASSIUM 4.6 mmol/L (3.5-5.1); TOTAL PROTEIN, SERUM 7.1 g/dL (6.4-8.2)
[2020-08-16] MEDS: DIVALPROEX SPRINKLE 125 MG CAP.SPRINK PO SCH ×2 (09:38→13:00)
[2020-08-16] MEDS: NITROFURANTOIN/NITROFURAN MAC 100 MG CAPSULE PO SCH (09:38)
[2020-08-16] MEDS: CLOTRIMAZOLE 1% CREAM 30 GM TUBE TOP SCH (09:38)
[2020-08-16] MEDS: risperiDONE-M 0.5 MG TAB.RAPDIS PO SCH (09:38)
[2020-08-16] MEDS: MEMANTINE HCL 10 MG TABLET PO SCH (09:38)
[2020-08-16] MEDS: Z GUARD REMEDY PASTE 57 GM TUBE TOP SCH (09:39)
[2020-08-16] MEDS: ENSURE ENLIVE (VAN) 240 ML LIQUID PO SCH ×2 (09:46→13:00)
--- NOTE | 2020-08-16 13:50 | NUR ---
PATIENT DISCHARGED TO [facility]. REPORT GIVEN TO NURSE AT THE FACILITY WHO IS READY TO ACCEPT THE PATIENT. PATIENT UNABLE TO PLAN FOR SELF CARE AND IS WILLING TO ACCEPT HELP FROM THE FACILITY. DISCHARGE INSTRUCTIONS COMPLETED AND MEDICATION LIST COMPLETED. BELONGINGS SENT WITH PATIENT. AWARE AND AGREEABLE WITH DISCHARGE.
== END 2020-08-16 14:00 | DRG 885 ==
LOC: ER 17:27 → GPS 20:48 → GPSOV3 08-05 20:02 → GPS 08-06 10:00
PROVIDERS: ADMIT Psychiatry & Neurology Psychosomatic Medicine; ATTEND Family Medicine
DX: F29 Unspecified psychosis not due to a substance or known physiological condition (principal); F01.50 Vascular dementia, unspecified severity, without behavioral disturbance, psychotic disturbance, mood disturbance, and anxiety; N17.0 Acute kidney failure with tubular necrosis; N39.0 Urinary tract infection, site not specified; J98.11 Atelectasis; Z20.822 Contact with and (suspected) exposure to COVID-19; B35.1 Tinea unguium; B35.3 Tinea pedis; F32.9 Major depressive disorder, single episode, unspecified; F41.9 Anxiety disorder, unspecified; Z73.6 Limitation of activities due to disability; F25.9 Schizoaffective disorder, unspecified; M62.81 Muscle weakness (generalized); D72.829 Elevated white blood cell count, unspecified; B96.89 Other specified bacterial agents as the cause of diseases classified elsewhere
CPT/HCPCS: 36415; 70450; 71045; 80164; 83735; 85025; 87077; 87086; 93005; A4663; G0480; J0696; J1630; J2060; J2358; Q0163

== ENCOUNTER 2020-08-16 16:09 | Emergency (ER) | payer MEDICARE, OTHER ==
[~2020-08-16 16:09] MED LIST: ACET-2154 PO; BISA10SU61 RC; BUSP10TA3 PO; LORA-258 PO; MAG30ORA PO; MEMA10TA PO; POLY17PO4 PO; QUET100T PO; SENN8.8S19 PO
--- NOTE | 2020-08-16 16:20 | NUR ---
[facility]. PER EMT REPORT PT WAS [facility] AND THE FACILITY REFUSED TO TAKE THE PT. NIKI YUSUF (DIRECTOR OF U) WAS CONTACTED UPON PT'S ARRIVAL AND CAME TO ER. PER SAVANNAH PT WAS SUPPOSED TO BE RE-ROUTED TO [facility]. PT WAS NOT SEEN IN ER AND WAS LEFT ER WITH SADE.
== END 2020-08-16 16:23 | disposition left against medical advice (07) ==
LOC: ER 16:10
DX: Z53.21 Procedure and treatment not carried out due to patient leaving prior to being seen by health care provider (principal)